=== PATIENT | male | born 1975 | race Caucasian/White ===

== ENCOUNTER 2017-08-31 20:34 | Emergency (ER) | payer BC ==
[2017-08-31 20:38] VITALS: PULSE 75
--- NOTE | 2017-08-31 20:51 | ED ---
Lower Extremity Injury HPI <YasmaniThiago - Last Filed: 09/01/17 01:13> - General Source: patient, family, RN notes reviewed Mode of arrival: ambulatory Limitations: no limitations <Regina Fontenot - Last Filed: 09/02/17 03:51> - General Chief Complaint: Extremity Injury, Lower Stated Complaint: ankle injury Time Seen by Provider: 08/31/17 20:43 - History of Present Illness Initial Comments: This is a 42-year-old male who presents to the emergency department with chief complaint of left ankle injury. Patient states that approximately 20 minutes prior to arrival he was walking down a set of stairs. He states that he tripped and rolled his left ankle. He states that his 16-year-old daughter brought him to the emergency department. He denies any pain and declines analgesia at this time. Denies any other injury or trauma. Denies fever, chills , chest pain, shortness of breath, abdominal pain, nausea or vomiting, numbness or tingling, headache or vision changes. (Regina Fontenot) - Related Data Previous Rx's Medication Instructions Recorded traMADol HCL [Ultram] 50 mg PO Q4HR PRN #15 tab 08/31/17 Allergies Allergy/AdvReac Type Severity Reaction Status Date / Time bee venom protein (honey bee) Allergy Rash/Hives Verified 08/31/17 20:58 Review of Systems ROS Other: All systems not noted in ROS Statement are negative. <Thiago Gruber - Last Filed: 09/01/17 01:13> ROS Other: All systems not noted in ROS Statement are negative. <Regina Fontenot - Last Filed: 09/02/17 03:51> ROS Statement: Those systems with pertinent positive or pertinent negative responses have been documented in the HPI. Past Medical History Past Medical History: No Reported History History of Any Multi-Drug Resistant Organisms: None Reported Past Surgical History: No Surgical Hx Reported Past Psychological History: No Psychological Hx Reported Smoking Status: Never smoker Past Alcohol Use History: None Reported Past Drug Use History: None Reported <Regina Fontenot - Last Filed: 09/02/17 03:51> General Exam <Thiago Gruber - Last Filed: 09/01/17 01:13> Limitations: no limitations <Regina Fontenot - Last Filed: 09/02/17 03:51> - General Exam Comments Initial Comments: General: Awake and alert, well-developed; in no apparent distress. Patient is calm. HEENT: Head atraumatic, normocephalic. Pupils are equal, round and reactive to light. Extraocular movements intact. Oropharynx moist without erythema or exudate. Neck: Supple. Normal ROM. Cardiovascular: Regular rate and rhythm. No murmurs, rubs or gallops. Chest symmetrical. Respiratory: Lungs clear to auscultation bilaterally. No wheezes, rales or rhonchi. Normal respiratory effort with no use of accessory muscles. Musculoskeletal: Obvious gross deformity of the left ankle. No tenderness on palpation of left proximal tibia and fibula. No tenderness on palpation of left foot. Sensation is intact. Pedal pulses are 2+ equal and palpable bilaterally. Skin: [place], warm and dry without rashes or lesions. Neurological: Alert and oriented x3. CN II-XII grossly intact. Speech is fluent and answers are appropriate. No focal neuro deficits. Psychiatric: Normal mood and affect. No overt signs of depression or anxiety noted. (Regina Fontenot) Course <Thiago Gruber - Last Filed: 09/01/17 01:13> <Regina Fontenot - Last Filed: 09/02/17 03:51> Vital Signs 08/31/17 08/31/17 08/31/17 20:36 21:30 21:35 Temperature 97.7 F Pulse Rate 75 80 72 Respiratory 20 18 20 Rate Blood Pressure 117/71 115/65 128/62 O2 Sat by Pulse 98 99 98 Oximetry 08/31/17 08/31/17 08/31/17 21:40 21:48 22:26 Temperature 98.7 F Pulse Rate 72 75 75 Respiratory 18 20 18 Rate Blood Pressure 109/61 107/59 104/70 O2 Sat by Pulse 99 99 95 Oximetry - Reevaluation(s) Reevaluation #1: At this time, patient is resting comfortably in bed. Conscious sedation and reduction of dislocated left ankle was successful. Patient tolerated well without complications. OCL posterior and ankle stirrup splints were placed. Awaiting repeat x-rays. 08/31/17 21:47 (Regina Fontenot) Procedures - Orthopedic Joint Reduction Joint #1 Consent Obtained: written consent Time Out Performed: Yes Side: left Joint Reduction Location: ankle Analgesia: procedural sedation Technique Used: direct manipulation Post-Reduction Neuro Exam: intact Post-Reduction Vascular Exam: intact Post Reduction X-Ray Obtained: Yes Post Reduction X-Ray Results: reduced Splint Applied: Yes Patient Tolerated Procedure: well - Procedural Sedation Procedural Sedation Start Time: 21:30 Procedural Sedation Stop Time: 21:45 Indications: fracture/dislocation reduction ASA Class: I Mallampati Airway Score: 1 Preparation: cardiac specialist applied, pulse oximeter, capnometry used, supplemental O2 applied, suction/airway equipment at bedside, IV secured IV Etomidate Dose (mgs): 12 Complications: none Patient Tolerated Procedure: well <Thiago Gruber - Last Filed: 09/01/17 01:13> - Orthopedic Splinting/Casting Injury #1 Side: left Lower Extremity Injury Location: long leg, ankle Lower Extremity Immobilizer: posterior splint, stirrup splint, synthetic pre- padded splint <Regina Fontenot - Last Filed: 09/02/17 03:51> Medical Decision Making <Thiago Gruber - Last Filed: 09/01/17 01:13> - Radiology Data Radiology results: report reviewed, image reviewed <Regina Fontenot - Last Filed: 09/02/17 03:51> - Medical Decision Making I saw this patient in conjunction with the physician certified physician's assistant. I performed independent history and physical exam. Agree with case management. (Thiago Gruber) This is a 43-year-old male presents to the emergency department chief complaint of left ankle injury. There is an obvious gross deformity of the left ankle on presentation. Initially, patient refused analgesia. After x-rays were taken he stated he was feeling mild pain. Given morphine and Zofran and an IV line was started. X-rays were reviewed with attending physician, Dr. Gruber. Etomidate ordered and respiratory contacted for conscious sedation. Conscious sedation and reduction of the dislocated left ankle was successful. Patient tolerated well without any complications. Posterior and ankle stirrup OCL splints were placed. Patient is neurovascularly intact. Postreduction x-ray was obtained and reduction was successful. He will be discharged home with recommendation to follow-up with Dr. Brown, orthopedics within 1-2 days for further evaluation and treatment. Patient will be provided with a prescription for tramadol. He is to keep his splint clean, dry and intact. He is to be non- weightbearing. Prescription for crutches is provided. Patient and are in agreement with plan and voice understanding. All questions answered. (Regina Fontenot) - Radiology Data X-ray left foot impression: Left ankle fracture and dislocation. X-ray left tibia and fibula impression: 1. Left ankle fracture dislocation. 2. Left mid fibular displaced fracture. X-ray left ankle impression: There is a fracture dislocation of the ankle, with complete disruption of the mortise. The fractures involve the distal tibia, a mid fibular shaft displaced fracture, and the lateral dome of the talus. Impression: Left ankle fracture dislocation. Postreduction left ankle x-ray findings: There is anatomic positioning and alignment now at the left ankle, with the mortise appearing intact. Also, the left mid fibular fracture appears anatomic positioning alignment presently. Impression: Postreduction anatomic result. (Regina Fontenot) Disposition <Thiago Gruber - Last Filed: 09/01/17 01:13> Is patient prescribed a controlled substance at d/c from ED?: Yes If prescribed controlled substance>3 days was MAPS reviewed?: Yes When asked, does pt state using other controlled substances?: No Time of Disposition: 22:08 <Regina Fontenot - Last Filed: 09/02/17 03:51> Clinical Impression: Fracture of fibula, Ankle dislocation, Fracture of tibia Disposition: HOME SELF-CARE Condition: Good Instructions: Leg Fracture (ED), Ankle Dislocation (ED) Additional Instructions: Please follow-up with Dr. Brown, orthopedics within 1-2 days. Please keep splint clean and dry and intact. Please remain non-weightbearing until follow- up with orthopedics. Please take medications as prescribed. Please follow up with primary care provider within 1-2 days. Return to emergency department if symptoms should worsen or any concerns arise. Prescriptions: traMADol HCL [Ultram] 50 mg PO Q4HR PRN #15 tab PRN Reason: Pain Referrals: Danie Henson DO [Primary Care Provider] - 1-2 days Meño Brown MD [STAFF PHYSICIAN] - 1-2 days
[2017-08-31] MEDS ORDERED: MORPHINE SULFATE 4 MG/ML SYRINGE IVP STA (21:02)
[2017-08-31] MEDS ORDERED: ONDANSETRON 4 MG/2 ML VIAL IVP STA (21:06)
[2017-08-31] MEDS ORDERED: MORPHINE SULFATE 4 MG/ML SYRINGE IM STA (21:06)
[2017-08-31] MEDS ORDERED: ETOMIDATE 2 MG/ML 10 ML VIAL IV STA (21:07)
--- NOTE | 2017-08-31 22:00 | XR ---
PROCEDURE: XR ankle limited LT 2 views DATE AND TIME: 08/31/2017 9:51 PM REFERRING PHYSICIAN: Regina Fontenot CLINICAL INDICATION: PHH, Pain TECHNIQUE: AP and lateral cross table views COMPARISON: None FINDINGS: There is a fracture dislocation at the ankle, with complete disruption at the mortise. The fractures involving the involving the distal tibia, a mid fibular shaft displaced fracture, and the l ateral dome of the talus. IMPRESSION: LEFT ANKLE FRACTURE DISLOCATION.
--- NOTE | 2017-08-31 22:02 | XR ---
PROCEDURE: XR foot limited LT, 2V DATE AND TIME: 08/31/2017 8:59 PM REFERRING PHYSICIAN: Regina Fontenot CLINICAL INDICATION: PHH, Pain TECHNIQUE: Department protocol. COMPARISON: None FINDINGS: There is a fracture dislocation at the ankle with complete disruption of the mortise. Structures of the forefoot and midfoot are intact. IMPRESSION: LEFT ANKLE FRACTURE DISLOCATION.
--- NOTE | 2017-08-31 22:04 | XR ---
PROCEDURE: XR tibia fibula LT, 4 views DATE AND TIME: 08/31/2017 8:59 PM REFERRING PHYSICIAN: Regina Fontenot CLINICAL INDICATION: PHH, Pain TECHNIQUE: Department protocol. COMPARISON: None FINDINGS: Imaging obtained from the knee to the ankle. There is a fracture dislocation at the left ankle with complete disruption of the mortise. There is a compound mid fibular fracture, with one shaft width anterior and lateral displacement. IMPRESSION: 1. LEFT ANKLE FRACTURE DISLOCATION. 2. LEFT MID FIBULAR DISPLACED FRACTURE.
--- NOTE | 2017-08-31 22:10 | XR ---
PROCEDURE: XR ankle limited LT, post reduction 2 views DATE AND TIME: 08/31/2017 9:49 PM REFERRING PHYSICIAN: Thiago Gruber CLINICAL INDICATION: PHH, post reduction TECHNIQUE: Cross table lateral AP and lateral views through a cast COMPARISON: Prereduction views 08/31/2017 FINDINGS: There is anatomic positioning and alignment now at the left ankle, with the mortise appearing intact. Also, the left mid fibular fracture appears anatomic in positioning and alignment presently. IMPRESSION: POST REDUCTION ANATOMIC RESULT.
[2017-08-31 22:26] VITALS: BP 104/70; RESP 18; TEMP 98.7
== END 2017-08-31 22:29 | disposition home or self-care (01) ==
LOC: EC 20:34
DX: S82.402A Unspecified fracture of shaft of left fibula, initial encounter for closed fracture (principal); S82.302A Unspecified fracture of lower end of left tibia, initial encounter for closed fracture; S92.142A Displaced dome fracture of left talus, initial encounter for closed fracture; Z91.030 Bee allergy status; W18.49XA Other slipping, tripping and stumbling without falling, initial encounter; Y93.01 Activity, walking, marching and hiking; Y92.009 Unspecified place in unspecified non-institutional (private) residence as the place of occurrence of the external cause
CPT/HCPCS: 99283; 27840; 99152; 96374; 96372; 73590; 73600; 73620; J2270; J2405

== ENCOUNTER → 2017-09-04 | Outpatient (CLI) | payer BC ==
--- NOTE | 2017-09-04 09:12 | CT ---
Left ankle CT HISTORY: Fracture dislocation Helical acquisition through the left ankle. Correlation to plain film 08/31/2017, three-dimensional re constructions, coronal and sagittal reconstructions performed There is extensive soft tissue swelling noted. Comminuted fibular fracture with displaced fracture fr agments is present at the diaphyseal level. Posterior malleolus shows fracture which is indeterminate reticular and comminuted, minimally displac ed. Small fracture fragments are present at the medial aspect of the tibiotalar joint which are intra -articular. Persistent mild lateral subluxation is noted at the tibiotalar joint. Small ossific densi ties are present which are displaced fragments due to comminuted fractures of the distal aspect of th e lateral tibia, also intra-articular fracture. IMPRESSION: Comminuted fractures involving the mid diaphyseal left fibula, lateral and posterior dist al tibia as described, fracture fragments within the joint with persistent slight lateral subluxation .
== END | disposition home or self-care (01) ==
LOC: RADCTMAIN 07:05
PROVIDERS: ATTEND Orthopaedic Surgery Sports Medicine
DX: S89.302A Unspecified physeal fracture of lower end of left fibula, initial encounter for closed fracture (principal); S93.02XA Subluxation of left ankle joint, initial encounter

== ENCOUNTER 2017-09-09 11:43 | Day surgery (SDC) | payer BC ==
[2017-09-08 11:53] VITALS: BMI 30.1
[~2017-09-09 11:43] MED LIST: ceFAZolin IN SWFI 2 GM/20 ML SYRINGE IVP ONE
[2017-09-09] MEDS ORDERED: LACTATED RINGERS 1,000 ML IV ONE ×2 (12:26→16:18)
[2017-09-09] MEDS ORDERED: LIDOCAINE 1% 20 ML VIAL (10MG/ML) FOR IV START INTRADERMA ONE (12:27)
[2017-09-09] MEDS ORDERED: MIDAZOLAM 2 MG/2 ML VIAL ONE ×2 (12:30→13:01)
[2017-09-09] MEDS ORDERED: ONDANSETRON 4 MG/2 ML VIAL ONE (12:31)
[2017-09-09] MEDS ORDERED: ONDANSETRON 4 MG/2 ML VIAL IVP ONE (12:59)
[2017-09-09] MEDS ORDERED: ROPIVACAINE 5 MG/ML 30 ML VIAL ONE (13:01)
[2017-09-09] MEDS ORDERED: HYDROmorphone (PF) 1 MG/ML ONE (13:01)
[2017-09-09] MEDS ORDERED: PROPOFOL 10 MG/ML 20 ML VIAL IV ONE (13:01)
[2017-09-09] MEDS ORDERED: LIDOCAINE 1% INJ 10MG/ML (20 ML MDV) ONE (13:01)
[2017-09-09] MEDS ORDERED: fentaNYL (PF) 50 MCG/ML 2 ML AMP ONE (13:01)
[2017-09-09] MEDS ORDERED: ceFAZolin 1,000 MG in SODIUM CHLORIDE 0.9% 1,000 ML IRRIGATION ONE (13:26)
--- NOTE | 2017-09-09 13:33 | P.ONQ ---
Anesthesiology Proc Note - PNB - Peripheral Nerve Block Performed Left Popliteal Time Out Performed: Yes (12:49) Indication: Acute Post-Operative Pain, Requested by physician (Dr Ashby) Sedation Type: Sedate with meaningful contact maintained Preparation: Sterile Prep Position: Supine (Lateral) Catheter: None Needle Types: Other (see comment) (Karlee) Needle Size: 50mm (2") Needle Gauge: 21 Technique: Ultrasound Injectate: 0.5% Ropivacaine (see comment for volume) (22cc) Blood Aspirated: No Pain Paresthesia on Injection Noted: No Resistance on Injection: Normal Events: Uneventful and Well Tolerated
[2017-09-09 15:36] VITALS: TEMP 99.3
--- NOTE | 2017-09-09 15:36 | XR ---
Limited left ankle HISTORY: Left ankle fracture 9 intraoperative C-arm images document the procedure
--- NOTE | 2017-09-09 15:39 | FL ---
Fluoroscopy HISTORY: Fracture 3 minutes 45 seconds fluoroscopy time supplied to the referring clinician. 9 intraoperative C-arm im ages document the procedure. See dictated report from orthopedic surgery.
[2017-09-09] MEDS ORDERED: HYDROmorphone 0.5 MG/0.5 ML SYRINGE IVP ONE (15:48)
--- NOTE | 2017-09-09 16:04 | P.OP ---
Date of Procedure: 09/09/17 Preoperative Diagnosis: 1. Closed left Maisonneuve variant ankle fracture dislocation 2. Left proximal diaphyseal fibula fracture 3. Left posterior malleolus fracture 4. Left anterolateral distal tibia Chaput fracture 5. Left deltoid ligament avulsion Postoperative Diagnosis: Same with the addition of full-thickness cartilage lesion of the anterolateral talus and 3 cm x 2 cm loose are piece of articular cartilage from the medial talus Procedure(s) Performed: 1. Open reduction and internal fixation of left syndesmosis 2. Left deltoid ligament repair 3. Nonoperative management left posterior malleolus fracture 4. Nonoperative management left distal tibia [place] fracture 5. Nonoperative management left fibular shaft fracture Anesthesia: GETA Surgeon: Nic Mann [employer] Produce Washer #1: Jaswant Fermin Estimated Blood Loss (ml): 20 IV fluids (ml): 500 Pathology: none sent Condition: stable Disposition: PACU Indications for Procedure: The patient is a very pleasant previously healthy 42-year-old male who sustained a left ankle fracture dislocation 1 week ago when he tripped and fell downstairs. He was seen in the emergency department where a closed reduction and splint was placed. The patient was then seen by my partner Dr. Brown who place this patient in a well-padded splint and obtained a computed tomography scan. I met with the patient and his Dr. Sol in the office to discuss treatment. His x-rays showed a mid to proximal fibula fracture, complete syndesmotic disruption, a small posterior malleolus fracture, and an anterolateral distal tibial avulsion of Chaput's tubercle. We discussed that the injury needed surgical fixation. We discussed several different strategies to fix the patient's ankle. We discussed fixing the fibula fracture for unable to gain length, but this would entail a lengthy dissection and retraction of the peroneal nerve proximally. We also discussed if we are able to gain length performing syndesmotic fixation and a deltoid ligament repair. We also discussed potentially fixing the anterolateral Chaput tubercle and posterior malleolus if they were significantly displaced. Our surgical plan was to perform an open reduction and internal fixation of the syndesmosis, a deltoid ligament repair, and possibly fixing the posterior malleolus and distal tibia Chaput fracture. We had a lengthy discussion on the potential risks and complications of surgery including but not limited to risk of anesthesia, risk of superficial infection, risk of deep infection, risk of delayed wound healing , risk of damage to local blood vessels or nerves, risk of fracture nonunion, risk of fracture malunion, risk of malreduction of the ankle mortise, risk of shortening of the fibula, risk of postoperative diastases of the syndesmosis or ankle mortise, risk of posterior medical arthritis, risk of chronic pain, risk of chronic swelling, risk of DVT, risk of PE, risk of other medical complications, inability to regain preinjury level of function, and possibly loss of life or limb. The patient and his understand attention for malreduction and that there is a high rate of syndesmotic malreduction despite best attempts to anatomically reduce the mortise and syndesmosis. They provided their verbal and written consent to go forward with surgery. Description of Procedure: The patient was identified in preoperative holding and the correct left leg was marked with my initials. I reviewed the consent form with the patient and his . All of their questions were answered. The left leg was marked with my initials. I took down the splint to examine the soft tissue envelope. There was wrinkling of the skin and no apparent fracture blisters. A popliteal and saphenous nerve block was placed by anesthesia. The patient was then brought back to the operating room by anesthesia. He was positioned on the OR table and a general anesthetic and preoperative antibiotics were administered. Prior to draping the patient out for surgery a true mortise view and lateral of the right ankle were taken to use his comparison to assess our reduction during the surgery. The right leg was then secured to the table with foam and tape. A bump was placed under the left buttock internally rotating the leg to neutral. A tourniquet was applied to the proximal aspect of the left thigh. A ramp was placed under the left leg elevating it to facilitate imaging. The left leg was then prepped and draped in the standard sterile fashion. Prior to starting surgery timeout was performed identifying the correct patient, operative extremity, and procedure. The patient's leg was then elevated, exsanguinated, and the tourniquet was inflated to 250 mmHg. I began by marking out incisions over the posterolateral border of the fibula, anterolateral aspect of the distal tibia and ankle, and over the medial malleolus. Skin incision was made over the fibular incision. Dissection was carried down carefully to the subcutaneous tissue with tenotomy scissors. A branch of the superficial peroneal nerve was identified and carefully retracted. The distal fibula was then exposed. A xodek-uj-lomtz reduction clamp was placed over the distal fibula and I pulled longitudinal traction to regain length. The medial clear space would not reduce so I turned my attention to the medial incision. Incision was made over the medial malleolus with a scalpel. Dissection was carried down carefully to the subcutaneous tissue with tenotomy scissors. Immediately upon entering the deep subcutaneous layer was apparent that the entire deltoid and capsule had avulsed off of the medial malleolus. The medial joint space was immediately visible and exposed. Were several small osteochondral fragments which were removed. Fibers of the deltoid were cleaned out from within the ankle mortise. The posterior tibial tendon was identified but not incarcerated in the joint. I was able to pull out a large 3 cm x 2 cm loose piece of articular cartilage with no attached bone. The medial wound was then copiously irrigated. After cleaning the medial gutter the talus would reduced within the ankle mortise. I then made a surgical incision over the anterolateral aspect of the distal tibia. Dissection was carried down carefully through the subcutaneous tissue with tenotomy scissors. The anterolateral [place] fragment was identified. The fragment appeared to be too small and was comminuted so I did not think it could accommodate surgical fixation with a screw. The anterolateral aspect of the ankle was identified and cleansed of debris. There was a small loose flap of articular cartilage off of the lateral talar dome which was sharply excised with a scalpel. At this point the ankle could be reduced and the fibula could be pulled out to length. I pulled the fibula out to length and pinned the fibula to the tibia to hold the reduction. The syndesmotic reduction was assessed radiographically, using the contralateral x-rays as a comparison and clinically. Attention was then turned medially. A drill from the 3. 0 suture anchor set was used to create a path over the anterior aspect of the distal medial malleolus. Prior to drilling a hole the bone was prepped. The drill was angled proximal and away from the ankle joint. A 3.0 mm suture anchor was then gently tapped into place. 2 limbs of suture were used to repair the deltoid ligament back down to the medial malleolus or my health education assistant applied inversion to the ankle. This nicely reapproximated the deltoid ligament. A mortise x-ray was taken and the talus appeared reduced. When I applied gentle stress to the ankle there was only slight widening of the medial clear space. A 4 hole one third tubular plate was then placed over the posterior lateral aspect of the distal fibula. 3.5 mm screws were placed in the most proximal and distal hole earning it down to bone. A large pelvic reduction clamp was then placed with 1 marta in the most distal screw and 1 marta over the medial malleolus. The reduction clamp was gently tightened taking care to not over compressed the syndesmosis. The foot was not dorsiflexed due to the posterior malleolus fragment. Once the syndesmosis was reduced fluoroscopy images were assessed. I then placed a suture anchor in the third hole of the plate. The medial button was flipped under direct visualization down to bone. Both limbs of the tight rope were sequentially tightened and then tied over the plate. I then proceeded to place a fully threaded solid 3.5 mm screw across all 4 cortices taking care to angle 30 anteriorly. Once fixation was across the syndesmosis fluoroscopic images were obtained. On the mortise view the talus appeared to be reduced within the ankle mortise and the fibular length appeared symmetric to the contralateral x-ray. A true talar dome lateral x-ray was comparable to the contralateral side. A manual external rotation stress x-ray showed no widening of the syndesmosis or medial clear space. On the lateral view the posterior malleolus appeared to be minimally reduced so no fixation was applied. At this point the ankle felt stable. X-rays were taken of the proximal fibula fracture which appeared to be minimally displaced. All wounds were copiously irrigated. All wounds were closed in layers with 0 Vicryl for the periosteal layer, 2-0 Vicryl for the subcu, and 3-0 nylon horizontal mattress stitches for the skin. I verified that all instrument, sponge, and sharp counts were correct. The tourniquet was let down with a total tourniquet time of 100 minutes. A sterile dressing consisting of Betadine soaked Adaptic, 4 x 4, and web roll was applied. A bulky Aguilar splint was then placed with the ankle at neutral. The patient was then awoken from his anesthetic, transferred to a gurney, and brought to PACU in stable condition. Jaswant Fermin PA-C was required as a skilled health education assistant for patient positioning, retraction, exposure, placement of hardware, closure of wounds, and application of dressing and splint. Plan: The patient is going to discharge home as an outpatient. He is to be strictly nonweightbearing on his left leg. He was instructed on normal splint maintenance. He is going to be given aspirin 325 mg twice a day for DVT prophylaxis due to his low risk stratification for DVT. He'll follow-up in 2 weeks for splint removal and x-rays of the ankle and tibia and fibula.
[2017-09-09] MEDS ORDERED: HYDROcodone/APAP 5-325MG 1 EACH TAB PO ONE (16:49)
[2017-09-09 17:18] VITALS: BP 146/89; PULSE 71; RESP 16
== END 2017-09-09 17:38 | disposition home or self-care (01) ==
LOC: OR 11:43
PROVIDERS: ATTEND Orthopaedic Surgery
DX: S82.862A Displaced Maisonneuve's fracture of left leg, initial encounter for closed fracture (principal); M24.072 Loose body in left ankle; W10.9XXA Fall (on) (from) unspecified stairs and steps, initial encounter; Z79.891 Long term (current) use of opiate analgesic; Z79.899 Other long term (current) drug therapy; Z91.030 Bee allergy status
CPT/HCPCS: 27828; 73610; 64450; C1713; J2250; J2405; J0690 ×2; J2001; J3010; J1170 ×2; J2795; J2704

== ENCOUNTER → 2018-11-12 | Outpatient (CLI) | payer BC ==
[2018-11-12 10:00] LABS: Basophils % (A) 1 %; Eosinophils # (A) 0.1 k/uL (0-0.7); Eosinophils % (A) 3 %; HCT 44.2 % (39.0-53.0); HGB 14.4 gm/dL (13.0-17.5); Lymphocytes # (A) 1.7 k/uL (1.0-4.8); Lymphocytes % (A) 34 %; MCH 28.7 pg (25.0-35.0); MCHC 32.7 g/dL (31.0-37.0); MCV 87.6 fL (80.0-100.0); Mean Platelet Volume 5.9; Monocytes # (A) 0.4 k/uL (0-1.0); Monocytes % (A) 8 %; Neutrophils # (A) 2.5 k/uL (1.3-7.7); Neutrophils % (A) 51 %; Platelet Count 354 k/uL (150-450); RBC 5.04 m/uL (4.30-5.90); WBC 4.9 k/uL (3.8-10.6)
[2018-11-12 17:12] LABS: African American GFR (CKD) 106.4 (60.0-200.0); Albumin 4.4 g/dL (3.80-4.90); Albumin/Globulin Ratio 1.63 (1.60-3.17); Anion Gap 12.4 mmol/L (4.00-12.00); Calcium 9.9 mg/dL (8.7-10.3); Carbon Dioxide 24.6 mmol/L (21.6-31.8); Globulin 2.7 g/dL (1.6-3.3); LDL Cholesterol,Calculated 206.2 mg/dL (0.0-131.0); Potassium 4.7 mmol/L (3.5-5.5); Total Bilirubin 0.3 mg/dL (0.3-1.2); Total Protein 7.1 g/dL (6.2-8.2); VLDL Calculation 47.8 mg/dL (5.00-40.00)
[2018-11-12 18:16] LABS: Hemoglobin A1C 5.8 % (4.0-6.0)
== END | disposition home or self-care (01) ==
LOC: LABWHC1 08:36
PROVIDERS: ATTEND Family Medicine
DX: Z00.00 Encounter for general adult medical examination without abnormal findings (principal)
CPT/HCPCS: 36415; 80053; 80061; 83036; 84443; 85025

== ENCOUNTER → 2019-11-30 | Outpatient (CLI) | payer BC ==
--- NOTE | 2019-12-01 07:15 | US ---
EXAMINATION TYPE: US thyroid st tissue head/neck DATE OF EXAM: 11/30/2019 COMPARISON: NONE CLINICAL HISTORY: R09.89 Feeling Foreign body in throat. GLAND SIZE: Right Lobe: 6.0 x 2.6 x 2.1 cm Overall Parenchyma: heterogenous Left Lobe: 5.8 x 2.2 x 2.1 cm Overall Parenchyma: heterogeneous Isthmus Thickness: 0.7 cm NODULES RIGHT: # of nodules measured on right: 0 LEFT: # of nodules measured on left: 0 ISTHMUS: # of nodules measured in the isthmus: 0 Bilateral neck scanned, no evidence of lymphadenopathy. Bilateral diffusely heterogeneous and enlarged thyroid lobes IMPRESSION: Thyromegaly correlate for thyroiditis.
== END | disposition home or self-care (01) ==
LOC: RADUSWWP 16:11
PROVIDERS: ATTEND Family Medicine
DX: E01.0 Iodine-deficiency related diffuse (endemic) goiter (principal)
CPT/HCPCS: 76536